=== PATIENT | female | born 1935 | race Caucasian/White ===

== ENCOUNTER 2020-09-23 17:24 | Emergency (ER) | payer MEDICARE, SELFPAY ==
[2020-09-23] VITALS (7 sets, daily range): BP systolic 95–138; BP diastolic 45–60; PULSE 63–79; RESP 12–24; TEMP 35.8; O2SAT 13–99; BMI 25.0
--- NOTE | ~2020-09-23 | CT_ITS ---
EXAMINATION: CT ANGIOGRAM CHEST CLINICAL INFORMATION: Syncope and chest pain with question of dissection COMPARISON: None TECHNIQUE: Multiple axial images were obtained through the chest after the administration of 70 mL of Omnipaque 350 intravenous contrast. Extensive vascular post-processing including two-dimensional and three-dimensional reformatted images were created and reviewed on an independent workstation. This CT examination was performed using dose optimization techniques as appropriate, variously including the following: *Automated exposure control *Adjustment of mA and/or kV according to patient size (this includes techniques or standardized protocols for targeted exams where dose is matched to indication/reason for exam; i.e. extremities or head) *Use of iterative reconstruction technique DLP: 291 mGy-cm FINDINGS: VASCULAR: The thoracic aorta shows calcific atherosclerotic changes but there is no evidence of aortic dissection or aneurysm. Three-vessel branching pattern of the aortic arch is seen with widely patent great vessels. Pulmonary arteries are well visualized and there is no evidence of pulmonary emboli seen. LUNGS: Tree-in-bud type branching pulmonary nodules are seen at the left apex suggesting inflammation/infection rather than neoplasm (see grover images). Calcified right upper lobe granuloma present. No other lung masses are seen. Nonspecific bibasilar dependent atelectatic changes are seen. MEDIASTINUM: The mediastinum is normal. No mediastinal or hilar lymphadenopathy seen. Heart size normal. PLEURA: There is no pleural effusion. No pleural mass or thickening. AXILLA: No lymphadenopathy. UPPER ABDOMEN: Unremarkable. OSSEOUS STRUCTURES: Degenerative changes noted in the spine. No bony destructive lesions seen. CT/CT angio chest IMPRESSION: Unremarkable examination. IMPRESSION: 1. No evidence of aortic aneurysm or dissection. 2. Pulmonary arteries very well seen and no evidence of pulmonary emboli. 3. Tree-in-bud nodular abnormalities seen in left upper lobe indicative of inflammatory rather than neoplastic disease. Follow-up study is recommended in 3 months for further evaluation. VTE: Negative
--- NOTE | ~2020-09-23 | CT_ITS ---
CT head/brain wo con, CT cervical spine wo con CLINICAL INFORMATION: Fall COMPARISON: No prior CT scan available for comparison. TECHNIQUE: Department standard protocol. This CT examination was performed using dose optimization techniques as appropriate, variously including the following: *Automated exposure control *Adjustment of mA and/or kV according to patient size (this includes techniques or standardized protocols for targeted exams where dose is matched to indication/reason for exam; i.e. extremities or head) *Use of iterative reconstruction technique DLP: 1458 mGy-cm FINDINGS: CEREBRAL HEMISPHERES: There is no evidence of intra-axial or extra-axial mass, hemorrhage or acute infarct. BRAIN PARENCHYMA: Normal rdz-white matter differentiation. SUBDURAL SPACE: No bleed. BASAL GANGLIA AND PINEAL GLAND: Lacunar infarct right basal ganglia just lateral to the caudate lobe. VENTRICLES: Symmetric and normal in size. CEREBELLUM AND BRAINSTEM: No space-occupying mass, hemorrhage or acute infarct. CEREBELLOPONTINE ANGLES: No lesion found. ORBITS: No intraorbital mass. VESSELS: Unremarkable SKULL BASE: Unremarkable INCLUDED SINUSES AT SKULL BASE: Clear SKULL AND SKIN: No fracture or bone lesion found. CT/CT cervical spine wo con IMPRESSION: 1. 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 2. No intracranial bleed. 3. Bilateral basal ganglia calcifications commonly idiopathic. Normal CT scan does not rule out the possibility of hyperacute infarct in the first 12 hours. If patient symptoms persist may consider correlation with MRI, which is more sensitive for early acute infarct. EXAMINATION: CT CERVICAL SPINE without contrast CLINICAL INFORMATION: Reason for Exam Syncope with fall, rule out fracture, bleed, stroke COMPARISON: No prior CT available, TECHNIQUE: Computed axial sagittal and coronal images acquired using department's standard protocol. This CT examination was performed using dose optimization techniques as appropriate, variously including the following: *Automated exposure control *Adjustment of mA and/or kV according to patient size (this includes techniques or standardized protocols for targeted exams where dose is matched to indication/reason for exam; i.e. extremities or head) *Use of iterative reconstruction technique CONTRAST: None DLP: 1458 mGy-cm FINDINGS: SKULL BASE: Visualized structures at skull base are normal, Included facial sinuses are clear, CERVICAL VERTEBRAE: Seven cervical vertebrae identified maintaining proper height and alignment, DISCS: Loss of disc height and sclerotic changes of endplates suggest degenerative disc disease at C4-C5, C5-C6, C6-C7 and C7-T1. C1-C2: There is no CT evidence of significant osseous narrowing of the central canal or neural foramen. C2-C3: There is no CT evidence of significant osseous narrowing of the central canal or neural foramen. C3-C4: There is no CT evidence of significant osseous narrowing of the central canal or neural foramen. C4-C5: There is no CT evidence of significant osseous narrowing of the central canal or neural foramen. C5-C6: There is no CT evidence of significant osseous narrowing of the central canal or neural foramen. C6-C7: There is no CT evidence of significant osseous narrowing of the central canal or neural foramen. C7-T1: There is no CT evidence of significant osseous narrowing of the central canal or neural foramen. PARAVERTEBRAL SOFT TISSUE: Paravertebral soft tissues unremarkable. IMPRESSION: No CT evidence of cervical spine fractures. Degenerative disc disease, narrowing of disc height and developed osteophyte from the endplates. No significant stenosis of the central canal or neural foramen.
--- NOTE | 2020-09-23 17:53 | ECG_ITS ---
Test Reason : CHEST PIN Blood Pressure : / mmHG Vent. Rate : 064 BPM Atrial Rate : 064 BPM P-R Int : 180 ms QRS Dur : 084 ms QT Int : 440 ms P-R-T Axes : 066 012 040 degrees QTc Int : 453 ms Normal sinus rhythm Normal ECG No previous ECGs available Referred By: Skyler Washburn Electronically Signed By:DARLENE GRANGER
[2020-09-23] MEDS: fentaNYL citrate/PF 100 MCG/2 ML VIAL 25 MCG IVPUSH ×2 (18:00→18:50)
[2020-09-23] MEDS: ondansetron HCL 4 MG/2 ML VIAL IVPUSH ×2 (18:01→18:38)
[2020-09-23] MEDS: 0.9 % Sodium Chloride 1,000 ML 999 ML IV (18:01)
--- NOTE | 2020-09-23 18:13 | ED.SYNCOPE ---
HPI - Syncope General Chief Complaint: Syncope Stated Complaint: syncope Time Seen by Provider: 09/23/20 17:39 Source: patient Mode of arrival: EMS Limitations: other (Patient is in pain, actively vomiting) History of Present Illness HPI narrative: 84-year-old female who presents emergency department for evaluation of syncopal episode and chest pain. The patient lives at [facility]. Apparently, she was walking and had a sudden onset of dizziness, lightheaded and then had a syncopal episode. The patient cannot give me any details of her syncopal episode. In route to the hospital the patient did complain of left-sided chest pain. Here in the emergency department the patient is moaning in pain, she appears to be anxious and she is holding her left chest. She states she has a dull, squeezing like pain in her left anterior chest which is moderate to severe in intensity, the pain does not radiate to her back. The patient had nausea and was actively vomiting here in the emergency department. The patient's grandson, Doc is here in the emergency department with the patient. The patient did receive a 2 shot vaccination for COVID-19. Second vaccination was done several months ago. Related Data Allergies Allergy/AdvReac Type Severity Reaction Status Date / Time No Known Allergies Allergy Verified 09/23/20 17:52 Review of Systems Review of Systems: Yes all other systems are reviewed and are negative [facility] Past Medical History [facility] Narrative: Past medical history: Hypertension. Social history: Social History Social History Alcohol intake: current Alcohol intake frequency: holidays/special occasions only Patient Tobacco Use Status: Never used Tobacco Use of substances other than those prescribed or required for medical reasons: No Advance Directives: No Advance Directives Information Provided: Yes Physical Exam Vital Signs: Vital Signs: Last Vital Signs Temp 96.5 F L 09/23/20 18:38 Pulse 73 09/23/20 22:37 Resp 14 09/23/20 21:38 BP 116/52 L 09/23/20 22:37 Pulse Ox 13 L 09/23/20 22:37 Oxygen Flow Rate 2 09/23/20 18:38 Body Mass Index 25.0 Const: Other: Elderly female, moaning in pain, actively vomiting, appears very anxious, tachypneic, very cool skin HENMT: Head: Yes normal to inspection, Yes normocephalic and Yes atraumatic Ears: external ears normal General nose exam: Normal external nose present Face and sinus: Yes normal facial exam Mouth: Normal oral and palatal mucosa present Throat: Yes posterior oropharynx normal Eyes: General: appearance normal, both eyes and all related structures Pupils: Equal, round and reactive pupils present Neck: Neck: Yes normal visual inspection, Yes no lymphadenopathy, Yes trachea midline and Yes supple Chest: Chest palpation & inspection: normal inspection of the chest and normal palpation of entire chest wall Resp: Effort & Inspection: normal respiratory effort and able to speak in complete sentences Auscultation: clear to auscultation bilaterally Cardio: Rate: regular rate Rhythm: regular rhythm Heart sounds: S1 normal heart sound present, S2 normal heart sound present and no murmurs GI: Inspection: Yes normal to inspection Palpation (GI): Soft to palpation, nontender and no guarding Auscultation: normal bowel sounds : General: Yes no CVA tenderness Back/Spine/Pelvis: Back: no CVA tenderness Skin: General skin exam: no rashes or lesions noted Neuro: Cranial nerves: Yes CN's II-XII intact bilaterally and Yes Equal, round and reactive pupils present Cognition (Neuro): normal cognition Motor exam (neuro): 5/5 motor strength present throughout Extrem: General: Yes normal to inspection Psych: Appearance: grossly normal Speech and movement: Normal speech and movement present Affect: normal affect Attitude: cooperative Thought process: Normal thought process present Thought content: Normal thought content present Course Course Course Narrative: 84-year-old female who presents emergency department for evaluation of dizziness, syncope and left anterior chest pain. The patient was not able to give any details of her syncopal episode. On presentation the patient did appear to be in distress secondary to her pain and she was actively vomiting. The patient was given normal saline IV x1 L since it was reported that she had a low blood pressure by the paramedics, her chest pain was treated with fentanyl 25 mg IV and her nausea and vomiting was treated with Zofran 4 mg IV. The patient does have symmetric pulses. Dr. Harrell, our intake clerk was in the emergency department and he did an echocardiogram on the patient. There were no significant wall motion abnormalities or valvular abnormalities, patient's ejection fraction appeared to be normal. Given her sudden onset of chest pain and syncope, I am concerned that she may have an aortic dissection therefore CT aortic angiogram of the chest was ordered. I also ordered a CT scan of the head and neck without IV contrast. 2026: Patient's CT aortic angiogram revealed no dissection, PE or other significant abnormality to explain the patient's chest pain. Patient does have left upper lobe inflammatory changes but I do not think that this is the cause of her symptoms. The patient's laboratory evaluation did reveal a detectable but not elevated high sensitivity troponin of 9.0. This will be repeated at 10:00 p.m. The patient's alcohol level was elevated at 171 and some of her symptoms could be secondary to acute alcohol intoxication. I did discuss these findings with the patient and the patient's grandson 2356: The patient's repeat troponin was 9.5 which is reassuring. Patient's repeat lactic acid improved to 1.9. Patient's initial lactic acid was probably elevated secondary to alcoholic ketoacidosis. The patient will be discharged home. The patient was given verbal and printed instructions prior to discharge. The patient was advised to follow-up with her PCP in 2 days and to return to the emergency department if her symptoms get worse or if she develops any new symptoms that are concerning to her. MDM - Syncope Lab Data Result diagrams: 09/23/20 19:05 09/23/20 19:04 Labs: Lab Results 09/23/20 09/23/20 09/23/20 Range/Units 19:04 19:04 19:04 WBC (4.8-10.8) X10*3/uL RBC (4.20-5.50) X10*6/uL Hgb (12.0-16.0) g/dl Hct (37-47) % MCV (80-98) fL MCH (27.0-33.0) pg MCHC (31.0-35.0) g/dl RDW (11.0-16.0) % Plt Count (160-400) X10*3/uL MPV (9.4-12.3) fL Immature Gran % (Auto) (0.0-0.4) % Neut % (Auto) (45-73) % Lymph % (Auto) (20-40) % Republic % (Auto) (2-11) % Eos % (Auto) (0-4) % Baso % (Auto) (0-2) % Lymph # (Auto) (1.2-4.9) X10*3/uL Republic # (Auto) (0.1-1.2) X10*3/uL Eos # (Auto) (0.0-0.4) X10*3/uL Baso # (Auto) (0.0-0.2) X10*3/uL Abs Immat Gran (auto) (0.00-0.03) X10*3/uL Absolute Neuts (auto) (2.0-8.3) X10*3/uL Absolute Nucleated RBC (0.0-0.012) X10*3/uL Nucleated RBC % (auto) (0.0-0.2) /100WBC PT 10.8 (9.9-13.0) SEC INR 1.0 (0.9-1.1) APTT 27.7 (24.1-38.0) SEC Sodium 140 (135-145) mmol/L Potassium 4.1 (3.3-5.1) mmol/L Chloride 112 H (96-108) mmol/L Carbon Dioxide 18 L (22-29) mmol/L Anion Gap 14 (12-20) BUN 27 H (9-16) mg/dL Creatinine 0.85 (0.5-1.4) mg/dL Estim Creat Clear Calc 44.4 Estimated GFR > 60 Random Glucose 102 (60-115) mg/dL Lactic Acid 2.5 H* (0.5-2.0) mmol/L Lactic Acid Fup @ 2Hr (0.5-2.0) mmol/L Calcium 8.0 L (8.4-10.2) mg/dL Total Bilirubin 0.2 (0.0-1.0) mg/dL AST 23 (5-31) U/L ALT 19 (0-31) U/L Alkaline Phosphatase 81 (39-117) U/L Troponin I High Sens (<3.5-17.0) ng/L Total Protein 6.5 (6.5-8.0) g/dL Albumin 3.7 (3.5-5.0) g/dL Lipase 84 H (8-78) U/L Ethyl Alcohol mg/dL COVID-19 (CRISTOPHER) (Negative) COVID-19 Clin Com 08/09/23/20 09/23/20 Range/Units 19:04 19:04 19:04 WBC (4.8-10.8) X10*3/uL RBC (4.20-5.50) X10*6/uL Hgb (12.0-16.0) g/dl Hct (37-47) % MCV (80-98) fL MCH (27.0-33.0) pg MCHC (31.0-35.0) g/dl RDW (11.0-16.0) % Plt Count (160-400) X10*3/uL MPV (9.4-12.3) fL Immature Gran % (Auto) (0.0-0.4) % Neut % (Auto) (45-73) % Lymph % (Auto) (20-40) % Republic % (Auto) (2-11) % Eos % (Auto) (0-4) % Baso % (Auto) (0-2) % Lymph # (Auto) (1.2-4.9) X10*3/uL Republic # (Auto) (0.1-1.2) X10*3/uL Eos # (Auto) (0.0-0.4) X10*3/uL Baso # (Auto) (0.0-0.2) X10*3/uL Abs Immat Gran (auto) (0.00-0.03) X10*3/uL Absolute Neuts (auto) (2.0-8.3) X10*3/uL Absolute Nucleated RBC (0.0-0.012) X10*3/uL Nucleated RBC % (auto) (0.0-0.2) /100WBC PT (9.9-13.0) SEC INR (0.9-1.1) APTT (24.1-38.0) SEC Sodium (135-145) mmol/L Potassium (3.3-5.1) mmol/L Chloride (96-108) mmol/L Carbon Dioxide (22-29) mmol/L Anion Gap (12-20) BUN (9-16) mg/dL Creatinine (0.5-1.4) mg/dL Estim Creat Clear Calc Estimated GFR Random Glucose (60-115) mg/dL Lactic Acid (0.5-2.0) mmol/L Lactic Acid Fup @ 2Hr (0.5-2.0) mmol/L Calcium (8.4-10.2) mg/dL Total Bilirubin (0.0-1.0) mg/dL AST (5-31) U/L ALT (0-31) U/L Alkaline Phosphatase (39-117) U/L Troponin I High Sens 9.0 (<3.5-17.0) ng/L Total Protein (6.5-8.0) g/dL Albumin (3.5-5.0) g/dL Lipase (8-78) U/L Ethyl Alcohol 171 mg/dL COVID-19 (CRISTOPHER) Negative (Negative) COVID-19 Clin Com See Note 09/23/20 09/23/20 09/23/20 Range/Units 19:05 21:53 21:53 WBC 8.0 (4.8-10.8) X10*3/uL RBC 3.52 L (4.20-5.50) X10*6/uL Hgb 11.3 L (12.0-16.0) g/dl Hct 34.4 L (37-47) % MCV 97.7 (80-98) fL MCH 32.1 (27.0-33.0) pg MCHC 32.8 (31.0-35.0) g/dl RDW 13.2 (11.0-16.0) % Plt Count 211 (160-400) X10*3/uL MPV 9.7 (9.4-12.3) fL Immature Gran % (Auto) 0.3 (0.0-0.4) % Neut % (Auto) 60.5 (45-73) % Lymph % (Auto) 30.9 (20-40) % Republic % (Auto) 5.4 (2-11) % Eos % (Auto) 2.3 (0-4) % Baso % (Auto) 0.6 (0-2) % Lymph # (Auto) 2.5 (1.2-4.9) X10*3/uL Republic # (Auto) 0.4 (0.1-1.2) X10*3/uL Eos # (Auto) 0.2 (0.0-0.4) X10*3/uL Baso # (Auto) 0.1 (0.0-0.2) X10*3/uL Abs Immat Gran (auto) 0.02 (0.00-0.03) X10*3/uL Absolute Neuts (auto) 4.8 (2.0-8.3) X10*3/uL Absolute Nucleated RBC 0.000 (0.0-0.012) X10*3/uL Nucleated RBC % (auto) 0.0 (0.0-0.2) /100WBC PT (9.9-13.0) SEC INR (0.9-1.1) APTT (24.1-38.0) SEC Sodium (135-145) mmol/L Potassium (3.3-5.1) mmol/L Chloride (96-108) mmol/L Carbon Dioxide (22-29) mmol/L Anion Gap (12-20) BUN (9-16) mg/dL Creatinine (0.5-1.4) mg/dL Estim Creat Clear Calc Estimated GFR Random Glucose (60-115) mg/dL Lactic Acid (0.5-2.0) mmol/L Lactic Acid Fup @ 2Hr 1.9 (0.5-2.0) mmol/L Calcium (8.4-10.2) mg/dL Total Bilirubin (0.0-1.0) mg/dL AST (5-31) U/L ALT (0-31) U/L Alkaline Phosphatase (39-117) U/L Troponin I High Sens 9.5 (<3.5-17.0) ng/L Total Protein (6.5-8.0) g/dL Albumin (3.5-5.0) g/dL Lipase (8-78) U/L Ethyl Alcohol mg/dL COVID-19 (CRISTOPHER) (Negative) COVID-19 Clin Com ECG Data Interpretation: 1752: Normal sinus rhythm rate of 64, normal AR interval, QRS duration and QTC interval, no ST segment elevation, no ST segment depression, this is a normal EKG. There is no old EKG for comparison. Discharge Plan Discharge Clinical Impression: Chest pain Qualifiers: Chest pain type: unspecified Qualified Code(s): R07.9 - Chest pain, unspecified Vomiting Qualifiers: Vomiting type: unspecified Vomiting Intractability: non-intractable Nausea presence: with nausea Qualified Code(s): R11.2 - Nausea with vomiting, unspecified Syncope Qualifiers: Encounter type: initial encounter Alcohol intoxication Qualifiers: Complication of substance-induced condition: uncomplicated Qualified Code(s): F10.920 - Alcohol use, unspecified with intoxication, uncomplicated Patient Disposition: Home, Self-Care Instructions: Alcohol Intoxication (ED) Additional Instructions: The CT scan of your chest revealed no dissection of your aorta or blood clots in your lungs. Your blood work was unremarkable except for an elevated alcohol level of 171. An alcohol level above 80 is considered to be high(this is the level that the police used to determine if you are intoxicated or too impaired to drive). Rest Increase your fluid intake the next 24 hours to prevent dehydration. You should avoid alcohol. Follow-up with your doctor in 2 days. Please return to the emergency department if your symptoms get worse or if you develop any symptoms that are concerning to you.
[2020-09-23] MEDS: iohexoL 350 MG/ML 100 ML INFUS..BTL IV (18:26)
[2020-09-23 19:14] LABS: MANUAL DIFF FLAG NO
[2020-09-23 19:15] LABS: Basophils Absolute Auto 0.1 X10*3/uL (0.0-0.2); Basophils Percent Auto 0.6 % (0-2); Eosinophils Absolute Auto 0.2 X10*3/uL (0.0-0.4); Eosinophils Percent Auto 2.3 % (0-4); Hematocrit 34.4 % (37-47); Hemoglobin 11.3 g/dl (12.0-16.0); Imm Gran Abs Auto 0.02 X10*3/uL (0.00-0.03); Imm Gran Pct Auto 0.3 % (0.0-0.4); Lymphocytes Absolute Auto 2.5 X10*3/uL (1.2-4.9); Lymphocytes Percent Auto 30.9 % (20-40); Mean Corpuscular HGB Conc 32.8 g/dl (31.0-35.0); Mean Corpuscular Hemoglobin 32.1 pg (27.0-33.0); Mean Corpuscular Volume 97.7 fL (80-98); Mean Platelet Volume 9.7 fL (9.4-12.3); Monocytes Absolute Auto 0.4 X10*3/uL (0.1-1.2); Monocytes Percent Auto 5.4 % (2-11); Neutrophils Absolute Auto 4.8 X10*3/uL (2.0-8.3); Neutrophils Percent Auto 60.5 % (45-73); Platelet Count 211 X10*3/uL (160-400); Red Blood Count 3.52 X10*6/uL (4.20-5.50); Red Cell Distribution Width 13.2 % (11.0-16.0)
[2020-09-23 19:22] LABS: Prothrombin Time 10.8 SEC (9.9-13.0)
[2020-09-23 19:24] LABS: Partial Thromboplastin Time 27.7 SEC (24.1-38.0)
[2020-09-23 19:36] LABS: Ethanol 171 mg/dL
[2020-09-23 19:39] LABS: Alanine Aminotransferase 19 U/L (0-31); Albumin Level 3.7 g/dL (3.5-5.0); Alkaline Phosphatase 81 U/L (39-117); Anion Gap 14 (12-20); Aspartate Amino Transferase 23 U/L (5-31); Bilirubin Total 0.2 mg/dL (0.0-1.0); Blood Urea Nitrogen 27 mg/dL (9-16); Carbon Dioxide 18 mmol/L (22-29); Chloride 112 mmol/L (96-108); Creatinine Clr Calc Pharmacy 44.4; Estimated Glomerular Filt Rate > 60; Glucose Random 102 mg/dL (60-115); Lipase 84 U/L (8-78); Potassium 4.1 mmol/L (3.3-5.1); Sodium 140 mmol/L (135-145); Total Protein 6.5 g/dL (6.5-8.0)
[2020-09-23 19:41] LABS: COVID-19 Test Negative (Negative)
[2020-09-23 19:42] LABS: Lactic Acid 2.5 mmol/L (0.5-2.0)
[2020-09-23 21:11] LABS: Reflex Lactate? Lactic Acid Added
[2020-09-23 22:38] LABS: ~Lactic Acid-LAB USE ONLY 1.9 mmol/L (0.5-2.0)
[2020-09-23 22:48] LABS: Troponin-I High Sensitivity 9.5 ng/L (<3.5-17.0)
== END 2020-09-24 00:30 | disposition home or self-care (01) ==
PROVIDERS: Emergency Provider Emergency Medicine Emergency Medical Services; PCP Internal Medicine
DX: R07.9 Chest pain, unspecified (principal); R11.2 Nausea with vomiting, unspecified; R55 Syncope and collapse; F10.920 Alcohol use, unspecified with intoxication, uncomplicated; Y90.6 Blood alcohol level of 120-199 mg/100 ml; Z20.822 Contact with and (suspected) exposure to COVID-19
CPT/HCPCS: 36415; 70450; 71275; 72125; 80053; 82077; 83605; 83690; 84484; 85025; 85610; 85730; 87635; 93005; 96361; 96374; 96375; 96376; 99284; 99285; J2405; J3010; Q9967

== ENCOUNTER 2021-01-28 10:54 | Emergency (ER) | payer MEDICARE, SELFPAY ==
[2021-01-28 11:13] VITALS: BP 197/95; PULSE 79; RESP 18; TEMP 36.4; O2SAT 98; BMI 21.4
--- NOTE | 2021-01-28 12:22 | ED_ITS ---
HPI - Allergic Reaction General Chief complaint: Allergic Reaction Stated complaint: MED REACTION Time Seen by Provider: 01/28/21 11:51 Source: patient Mode of arrival: ambulatory Limitations: no limitations History of Present Illness HPI narrative: 85-year-old female with a history of hypertension on lisinopril 20 mg > 20 yrs here with complaints of upper lip swelling since last evening at 17:00. Patient tells me that this happened to her about 1 week ago and self- resolved after a dose of Benadryl. She notices swelling around 17:00. She has taken 2 doses of Benadryl and feels like it is much improved. She did go to urgent care prior to arrival and they referred her into the emergency department for further evaluation. She denies any difficulty breathing, difficulty swallowing, cough, wheezing, vomiting, diarrhea, tongue swelling or itching. No rash. Related Data Previous Rx's Medication Instructions Recorded amlodipine 5 mg tablet (Norvasc) 5 mg PO DAILY #30 tab 01/28/21 prednisone 20 mg tablet 40 mg PO DAILY #8 tab 01/28/21 Allergies Allergy/AdvReac Type Severity Reaction Status Date / Time citrate Allergy Unknown Uncoded 01/28/21 11:13 Review of Systems Review of Systems: Yes all other systems are reviewed and are negative Constitutional: Constitutional: Reports no additional constitutional complaints, Denies body ache(s), Denies chills, Denies fever(s), Denies headache(s) and Denies weakness Eyes: Eyes: Reports no additional eye complaints and Denies change in vision ENT: Reports system reviewed and no additional complaints, except as documented, Denies dizziness, Denies headache(s), Reports lip swelling, Denies nasal congestion, Denies nasal discharge and Denies neck pain Cardiovascular: Cardiovascular: Reports no additional cardiovascular complaints, Denies chest pain, Denies leg edema and Denies dyspnea Respiratory: Respiratory: Reports no additional respiratory complaints, Denies cough and Denies dyspnea Gastrointestinal: Gastrointestinal: Reports no additional gastrointestinal complaints, Denies abdominal pain, Denies diarrhea, Denies nausea and Denies vomiting Genitourinary: Genitourinary: Reports no additional female genitourinary complaints and Denies urinary incontinence Musculoskeletal: Musculoskeletal: Reports no additional musculoskeletal complaints, Denies back pain, Denies arthralgias, Denies joint swelling, Denies neck pain, Denies numbness and Denies tingling Integumentary/Breasts: Skin/Breast: Reports system reviewed and no additional complaints, except as docu and Denies rash Neurologic: Reports system reviewed and no additional complaints, except as documented, Denies Abnormal speech present, Denies dizziness, Denies headache(s), Denies numbness, Denies tingling and Denies weakness Allergic/Immunologic: Allergic/Immunologic: Reports lip swelling PMFSH Past Medical History Attestation statement: The following information was validated with the patient. Source: old records reviewed and nursing notes reviewed Medical History Acute urticaria High blood pressure Surgical History Hx of appendectomy Social History Social History Alcohol intake: current Alcohol intake frequency: holidays/special occasions only Patient Tobacco Use Status: Never used Tobacco Advance Directives: No Advance Directives Information Provided: Yes Physical Exam Vital Signs: Vital Signs: Last Vital Signs Temp 97.5 F 01/28/21 11:13 Pulse 79 01/28/21 11:13 Resp 18 01/28/21 11:13 BP 197/95 H 01/28/21 11:13 Pulse Ox 98 01/28/21 11:13 BMI result Body Mass Index 21.4 Const: General: cooperative, healthy appearing, comfortable and no acute distress Orientation/consciousness: patient oriented x3 Limitations: no limitations HENMT: Other: Tongue is normal. No stridor Head: Yes normal to inspection Ears: hearing grossly normal bilaterally and TM's normal bilaterally General nose exam: Normal external nose present Face and sinus: Yes normal facial exam Mouth: Normal oral and palatal mucosa present Throat: Yes posterior oropharynx normal, Yes tonsils normal and Yes uvula midline Eyes: General: appearance normal, both eyes and all related structures Pupils: Equal, round and reactive pupils present Neck: Neck: Yes normal visual inspection, Yes full ROM, Yes no lymphadenopathy and Yes no meningeal signs Chest: Chest palpation & inspection: normal inspection of the chest Resp: Effort & Inspection: normal respiratory effort Auscultation: clear to auscultation bilaterally Cardio: Rate: regular rate Rhythm: regular rhythm Peripheral pulses: Peripheral pulses 2+ throughout GI: Inspection: Yes normal to inspection Palpation (GI): Soft to palpation and nontender Auscultation: normal bowel sounds Back/Spine/Pelvis: Thoracic/Lumbar Spine: thoracic and lumbar spine normal to inspection Skin: General skin exam: no rashes or lesions noted Neuro: General: patient oriented x3, no meningeal signs, no focal motor deficits and normal sensation to monofilament Cranial nerves: Yes Equal, round and reactive pupils present Cognition (Neuro): normal cognition Speech: No Abnormal speech present Gait exam (Neuro): Normal gait present Motor exam (neuro): 5/5 motor strength present throughout Extrem: General: Yes normal to inspection Course Course Course Narrative: 85-year-old female with a history of hypertension on lisinopril for multiple years here with reports of upper lip swelling since 17:00 yesterday. No additional complaints. Seen at urgent care prior to arri lilly referred into the emergency department for further evaluation. On arrival there is some slight swelling noted to the upper lip. The airway is intact. There is no stridor. The lung sounds are clear. This is likely secondary to lisinopril. Patient took Benadryl prior to arrival. Will give 1 dose of p.o. prednisone and monitor for brief time. Anticipate discharge home with discontinuation of lisinopril 1345-patient was monitored in the emergency department for 1 hour with no worsening in symptoms. Recommended discontinue lisinopril and start Norvasc. We discussed she can take her next dose of prednisone tomorrow. We also discussed if she develops worsening symptoms return to the emergency department. This case was discussed with Dr. Baker who agrees with plan of care. Reviewed worrisome signs and symptoms of when to return to the emergency department. Comfortable discharge home. MDM - Allergic Reaction Medical Records Attestation: I reviewed the patient's medical records. Lab Data Attestation: I reviewed the patient's lab results. Discharge Plan Discharge Clinical Impression: Angioedema Patient Disposition: Home, Self-Care Instructions: Angioedema (ED) Additional Instructions: Stop taking lisinopril Start taking amlodipine Take your next dose of prednisone tomorrow Continue to take Benadryl as needed If the swelling is worse or if you develops any difficulty breathing, difficulty swallowing, tongue itching or swelling you need to return to the emergency department. Prescriptions: New prednisone 20 mg tablet 40 mg PO DAILY Qty: 8 RF: 0 amlodipine [Norvasc] 5 mg tablet 5 mg PO DAILY Qty: 30 RF: 0 Referrals: Sussy Ramirez MD [Primary Care Provider] - 2 days
[2021-01-28] MEDS: predniSONE 20 MG TABLET 60 MG PO (12:29)
== END 2021-01-28 13:54 | disposition home or self-care (01) ==
PROVIDERS: Emergency Provider Emergency Medicine; PCP Internal Medicine
DX: T78.3XXA Angioneurotic edema, initial encounter (principal); T78.49XA Other allergy, initial encounter; T46.4X5A Adverse effect of angiotensin-converting-enzyme inhibitors, initial encounter; Y92.9 Unspecified place or not applicable; X58.XXXA Exposure to other specified factors, initial encounter; Z79.899 Other long term (current) drug therapy
CPT/HCPCS: 99283